=== PATIENT | female | born 1990 | race Caucasian/White ===

== ENCOUNTER 2017-08-08 23:45 | Inpatient (IN) | payer OTHER ==
[2017-08-09] MEDS: LACTATED RINGER'S 1,000 ML IV ×3 (01:10→21:13)
[2017-08-09 01:58] LABS: ADD MAN DIFF? NO
[2017-08-09 02:00] LABS: BASOPHILS % 0.4 % (0.0-2.0); EOSINOPHILS # 0.6 10^3/ul (0.0-0.5); EOSINOPHILS % 7.6 % (0.0-7.0); HEMATOCRIT 33.1 % (37.0-47.0); HEMOGLOBIN 11.4 g/dl (12.0-16.0); LYMPHOCYTES # 2.1 10^3/ul (0.8-2.9); LYMPHOCYTES % 25.8 % (15.0-51.0); MEAN CORPUSCULAR HEMOGLOBIN 31.9 pg (29.0-33.0); MEAN CORPUSCULAR HGB CONC 34.4 g/dl (32.0-37.0); MEAN CORPUSCULAR VOLUME 92.7 fl (82.0-101.0); MONOCYTE # 0.5 10^3/ul (0.3-0.9); MONOCYTES % 6.5 % (0.0-11.0); NEUTROPHIL # 4.8 10^3/ul (1.6-7.5); NEUTROPHILS % 59.3 % (39.0-77.0); PLATELET COUNT 275 10^3/UL (140-415); RED BLOOD COUNT 3.57 10^6/ul (4.20-5.40); RED CELL DISTRIBUTION WIDTH 11.7 % (11.5-14.5)
[2017-08-09 02:00] LABS: WHITE BLOOD COUNT 8.1 10^3/ul (4.8-10.8)
[2017-08-09] MEDS: MAGNESIUM SULFATE 4 GM/100 ML 100 ML IV (02:03)
[2017-08-09] MEDS: MAGNESIUM SULFATE 20 GM/500 ML 500 ML IV ×3 (02:04→21:19)
[2017-08-09] MEDS: BETAMET NA PHOS/AC(6 MG/ML) 5ML INJ IM (02:08)
[2017-08-09] MEDS: AZITHROMYCIN 500MG/NS (PMX) 250 ML IVPB (02:16)
[2017-08-09 02:18] LABS: ADD UMIC YES; UR ASCORBIC ACID NEGATIVE (NEGATIVE); UR BACTERIA FEW /HPF (NONE SEEN); UR BILIRUBIN (Dip) NEGATIVE (NEGATIVE); UR BLOOD (Dip) 3+ mg/dL (NEGATIVE); UR CLARITY SLIGHTLY CLOUDY (CLEAR); UR COLOR YELLOW (YELLOW); UR GLUCOSE (Dip) 3+ mg/dL (NEGATIVE); UR KETONES (Dip) TRACE mg/dL (NEGATIVE); UR LEUKOCYTE ESTERASE (Dip) 1+ Leu/ul (NEGATIVE); UR NITRITE (Dip) NEGATIVE (NEGATIVE); UR RBC > 182 /HPF (0-5); UR SPECIFIC GRAVITY (Dip) 1.018 (1.003-1.030); UR SQUAMOUS EPITHELIAL CELL FEW /HPF (FEW); UR TOTAL PROTEIN (Dip) 2+ mg/dl (NEGATIVE); UR UROBILINOGEN (Dip) NEGATIVE (NEGATIVE); UR WBC 74 /HPF (0-5)
[2017-08-09 02:18] LABS: RUPTURE FETAL MEMBRANES POSITIVE (NEGATIVE)
[2017-08-09 02:28] LABS: AMPHETAMINE/METHAMPHETAMINE Negative (NEGATIVE); BARBITURATES Negative (NEGATIVE); BENZODIAZEPINES Negative (NEGATIVE); CANNABINOIDS Negative (NEGATIVE); COCAINE Negative (NEGATIVE); OPIATES Negative (NEGATIVE)
[2017-08-09 02:55] LABS: HEPATITIS B SURFACE ANTIGEN NEGATIVE (NEGATIVE)
[2017-08-09] MEDS: AMPICILLIN 1 GM/NS (PMX) 50 ML IV ×4 (04:55→23:39)
[2017-08-09 06:44] LABS: MAGNESIUM 4.9 mg/dl (1.7-2.5)
[2017-08-09] MEDS: PRENATAL VITAMIN PO (09:06)
[2017-08-09] MEDS: FERROUS SULFATE (EC) 325 MG TAB PO (09:06)
[2017-08-09] MEDS: DOCUSATE SODIUM 100 MG CAP PO (09:20)
[2017-08-09 12:38] LABS: MAGNESIUM 5.8 mg/dl (1.7-2.5)
[2017-08-09 15:23] LABS: RAPID PLASMA REAGIN NONREACTIVE (NR)
[2017-08-09 19:04] LABS: MAGNESIUM 5.5 mg/dl (1.7-2.5)
[2017-08-10 00:34] LABS: MAGNESIUM 4.9 mg/dl (1.7-2.5)
[2017-08-10] MEDS: BETAMET NA PHOS/AC(6 MG/ML) 5ML INJ IM (02:22)
[2017-08-10] MEDS: AZITHROMYCIN 250 MG in SOD CHLORIDE 0.9% 250 ML IVPB (02:22)
[2017-08-10] MEDS: AMPICILLIN 1 GM/NS (PMX) 50 ML IV ×4 (05:38→23:52)
[2017-08-10 06:38] LABS: ADD MAN DIFF? NO
[2017-08-10 06:41] LABS: WHITE BLOOD COUNT 10.3 10^3/ul (4.8-10.8)
[2017-08-10 06:41] LABS: BASOPHILS % 0.2 % (0.0-2.0); EOSINOPHILS # 0.1 10^3/ul (0.0-0.5); EOSINOPHILS % 0.5 % (0.0-7.0); HEMOGLOBIN 11.1 g/dl (12.0-16.0); LYMPHOCYTES # 1.3 10^3/ul (0.8-2.9); LYMPHOCYTES % 12.9 % (15.0-51.0); MEAN CORPUSCULAR HEMOGLOBIN 31.9 pg (29.0-33.0); MEAN CORPUSCULAR HGB CONC 33.6 g/dl (32.0-37.0); MEAN CORPUSCULAR VOLUME 94.8 fl (82.0-101.0); MEAN PLATELET VOLUME 9.2 fl (7.4-10.4); MONOCYTE # 0.3 10^3/ul (0.3-0.9); MONOCYTES % 2.8 % (0.0-11.0); NEUTROPHIL # 8.5 10^3/ul (1.6-7.5); NEUTROPHILS % 82.6 % (39.0-77.0); PLATELET COUNT 272 10^3/UL (140-415); RED BLOOD COUNT 3.48 10^6/ul (4.20-5.40); RED CELL DISTRIBUTION WIDTH 11.8 % (11.5-14.5)
[2017-08-10 07:06] LABS: MAGNESIUM 5.4 mg/dl (1.7-2.5)
[2017-08-10] MEDS: MAGNESIUM SULFATE 20 GM/500 ML 500 ML IV ×2 (07:06→16:40)
[2017-08-10] MEDS: DOCUSATE SODIUM 100 MG CAP PO (09:44)
[2017-08-10] MEDS: PRENATAL VITAMIN PO (09:44)
[2017-08-10] MEDS: FERROUS SULFATE (EC) 325 MG TAB PO (09:44)
[2017-08-10] MEDS: LACTATED RINGER'S 1,000 ML IV ×2 (11:20→16:25)
[2017-08-10 13:56] LABS: MAGNESIUM 5.7 mg/dl (1.7-2.5)
[2017-08-10] MEDS: ACETAMINOPHEN 325 MG TAB PO (14:17)
[2017-08-10 19:26] LABS: MAGNESIUM 5.7 mg/dl (1.7-2.5)
[2017-08-11] MEDS: LACTATED RINGER'S 1,000 ML IV ×3 (01:10→17:51)
[2017-08-11 01:44] LABS: MAGNESIUM 5.7 mg/dl (1.7-2.5)
[2017-08-11] MEDS: AZITHROMYCIN 250 MG in SOD CHLORIDE 0.9% 250 ML IVPB (02:36)
[2017-08-11] MEDS: MAGNESIUM SULFATE 20 GM/500 ML 500 ML IV ×3 (03:46→23:56)
[2017-08-11] MEDS: AMPICILLIN 1 GM/NS (PMX) 50 ML IV ×4 (06:45→23:46)
[2017-08-11 08:07] LABS: MAGNESIUM 5.5 mg/dl (1.7-2.5)
[2017-08-11] MEDS: PRENATAL VITAMIN PO (09:01)
[2017-08-11] MEDS: FERROUS SULFATE (EC) 325 MG TAB PO (09:02)
[2017-08-11] MEDS: DOCUSATE SODIUM 100 MG CAP PO (09:02)
[2017-08-11] MEDS: ACETAMINOPHEN 325 MG TAB PO (12:15)
[2017-08-11 12:56] LABS: MAGNESIUM 5.4 mg/dl (1.7-2.5)
[2017-08-11 18:39] LABS: MAGNESIUM 5.5 mg/dl (1.7-2.5)
[2017-08-12 02:01] LABS: MAGNESIUM 5.4 mg/dl (1.7-2.5)
[2017-08-12] MEDS: AZITHROMYCIN 250 MG in SOD CHLORIDE 0.9% 250 ML IVPB (02:18)
[2017-08-12] MEDS: AMPICILLIN 1 GM/NS (PMX) 50 ML IV ×3 (06:18→13:52)
[2017-08-12 06:28] LABS: ADD MAN DIFF? NO
[2017-08-12 06:38] LABS: WHITE BLOOD COUNT 9.8 10^3/ul (4.8-10.8)
[2017-08-12 06:38] LABS: BASOPHILS % 0.4 % (0.0-2.0); EOSINOPHILS # 0.3 10^3/ul (0.0-0.5); EOSINOPHILS % 2.6 % (0.0-7.0); HEMOGLOBIN 11.1 g/dl (12.0-16.0); LYMPHOCYTES % 20.3 % (15.0-51.0); MEAN CORPUSCULAR HEMOGLOBIN 31.2 pg (29.0-33.0); MEAN CORPUSCULAR HGB CONC 32.6 g/dl (32.0-37.0); MEAN CORPUSCULAR VOLUME 95.5 fl (82.0-101.0); MEAN PLATELET VOLUME 8.9 fl (7.4-10.4); MONOCYTE # 0.6 10^3/ul (0.3-0.9); MONOCYTES % 6.4 % (0.0-11.0); NEUTROPHIL # 6.8 10^3/ul (1.6-7.5); NEUTROPHILS % 69.5 % (39.0-77.0); PLATELET COUNT 285 10^3/UL (140-415); RED BLOOD COUNT 3.56 10^6/ul (4.20-5.40); RED CELL DISTRIBUTION WIDTH 11.9 % (11.5-14.5)
[2017-08-12 06:58] LABS: INR 0.83; PROTIME 11.5 Sec (11.9-14.9); PT RATIO 0.9
[2017-08-12 06:59] LABS: PARTIAL THROMBOPLASTIN TIME 25.2 Sec (25.0-35.0)
[2017-08-12 07:04] LABS: MAGNESIUM 5.9 mg/dl (1.7-2.5)
[2017-08-12 07:27] LABS: HEPATITIS B SURFACE ANTIGEN NEGATIVE (NEGATIVE)
[2017-08-12] MEDS ORDERED: BUTORPHANOL 2 MG INJ IV (07:30)
[2017-08-12] MEDS ORDERED: OXYTOCIN 30 UNITS/LR 500 ML IV ×2 (07:30)
[2017-08-12] MEDS ORDERED: IBUPROFEN 600 MG TAB PO (07:30)
[2017-08-12] MEDS ORDERED: BUTORPHANOL 1 MG INJ IV (07:30)
[2017-08-12] MEDS ORDERED: MISOPROSTOL 200 MCG TAB PR (07:30)
[2017-08-12] MEDS ORDERED: LIDOCAINE 1% (MPF) 30 ML INJ INJ (07:30)
[2017-08-12] MEDS ORDERED: METHYLERGONOVINE 0.2 MG INJ IM (07:30)
[2017-08-12] MEDS ORDERED: CARBOPROST 250 MCG INJ IM (07:30)
[2017-08-12] MEDS ORDERED: HYDROCODONE/APAP (5/325) TAB PO ×3 (07:30→19:00)
[2017-08-12] MEDS: OXYTOCIN 30 UNITS/LR 500 ML IV ×4 (08:07→19:30)
[2017-08-12] MEDS: ACETAMINOPHEN 325 MG TAB PO (08:54)
[2017-08-12] MEDS: PRENATAL VITAMIN PO (08:56)
[2017-08-12] MEDS: DOCUSATE SODIUM 100 MG CAP PO (08:56)
[2017-08-12] MEDS: FERROUS SULFATE (EC) 325 MG TAB PO (08:56)
[2017-08-12] MEDS: LACTATED RINGER'S 1,000 ML IV ×3 (10:09→19:30)
[2017-08-12] MEDS ORDERED: LACTATED RINGER'S 1,000 ML IV (11:30)
[2017-08-12 15:04] LABS: RAPID PLASMA REAGIN NONREACTIVE (NR)
[2017-08-12] MEDS ORDERED: FENTAnyl 2MCG/ML-ROPIV 0.2% 100 ML (15:08)
[2017-08-12] MEDS ORDERED: ACETAMINOPHEN 325 MG TAB PO (19:00)
[2017-08-12] MEDS ORDERED: DIBUCAINE 1% 30 GM OINT PR (19:00)
[2017-08-12] MEDS ORDERED: LANOLIN 7 GM TUBE TOP (19:00)
[2017-08-12] MEDS ORDERED: OXYCODONE/ASPIRIN (4.88/325) TAB PO ×2 (19:00)
[2017-08-12] MEDS ORDERED: ONDANSETRON 4 MG INJ IV (19:00)
[2017-08-12] MEDS: SENNA/DOCUSATE NA (8.6MG/50MG) TAB PO (22:19)
[2017-08-12] MEDS: BENZOCAINE 20% 56 ML SPRAY TOP (22:39)
[2017-08-12] MEDS: WITCH HAZEL/GLYCERIN PAD PR (22:40)
[2017-08-12] MEDS: IBUPROFEN 600 MG TAB PO (23:43)
[2017-08-13] MEDS: IBUPROFEN 600 MG TAB PO ×4 (06:24→23:51)
[2017-08-13] MEDS: SENNA/DOCUSATE NA (8.6MG/50MG) TAB PO ×2 (08:36→21:54)
[2017-08-13 09:10] LABS: ADD MAN DIFF? NO
[2017-08-13 09:17] LABS: BASOPHILS % 0.3 % (0.0-2.0); EOSINOPHILS # 0.4 10^3/ul (0.0-0.5); EOSINOPHILS % 3.6 % (0.0-7.0); LYMPHOCYTES # 2.7 10^3/ul (0.8-2.9); LYMPHOCYTES % 27.1 % (15.0-51.0); MEAN CORPUSCULAR HEMOGLOBIN 31.3 pg (29.0-33.0); MEAN CORPUSCULAR HGB CONC 33.3 g/dl (32.0-37.0); MEAN PLATELET VOLUME 9.1 fl (7.4-10.4); MONOCYTE # 0.4 10^3/ul (0.3-0.9); MONOCYTES % 3.6 % (0.0-11.0); NEUTROPHIL # 6.3 10^3/ul (1.6-7.5); NEUTROPHILS % 64.8 % (39.0-77.0); PLATELET COUNT 269 10^3/UL (140-415); RED BLOOD COUNT 3.51 10^6/ul (4.20-5.40); RED CELL DISTRIBUTION WIDTH 11.9 % (11.5-14.5)
[2017-08-13 09:17] LABS: WHITE BLOOD COUNT 9.8 10^3/ul (4.8-10.8)
[2017-08-13 11:21] LABS: RUBELLA ANTIBODY - IGG <0.90 index
[2017-08-14] MEDS: IBUPROFEN 600 MG TAB PO (05:30)
[2017-08-14] MEDS: SENNA/DOCUSATE NA (8.6MG/50MG) TAB PO (10:19)
[2017-08-14] MEDS: MEASLES,MUMPS,RUBELLA VACCINE INJ SC* (10:46)
[2017-08-16 12:58] LABS: RUBELLA ANTIBODY - IGM <20.00 AU/mL
== END 2017-08-14 13:40 | disposition home or self-care (01) | DRG 775 ==
LOC: OBT 23:45 → L-D 23:45 → PP1 08-12 18:11
PROC: 10E0XZZ Delivery of Products of Conception, External Approach (ICD-10-PCS; principal; 2017-08-12)
PROC: 0UQMXZZ Repair Vulva, External Approach (ICD-10-PCS; 2017-08-12)
DX: O42.113 Preterm premature rupture of membranes, onset of labor more than 24 hours following rupture, third trimester (principal); O70.0 First degree perineal laceration during delivery; Z3A.34 34 weeks gestation of pregnancy; Z37.0 Single live birth
CPT/HCPCS: 62319; 76815; 76816; 76818; 80307; 81001; 83735; 84112; 85025; 85610; 85730; 86592; 86762; 86850; 86900; 86901; 87081; 87086; 87340; 88307; 99464